=== PATIENT | female | born 1985 | race Two or more races ===

== ENCOUNTER 2024-04-22 13:46 | Emergency (ER) | payer OTHER ==
[~2024-04-22] VITALS: Ht 162.6 cm; Wt 103.1 kg
[2024-04-22 14:37] VITALS: BP 148/100; PULSE 90; RESP 18; TEMP 98.2; O2SAT 99
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
[2024-04-22] MEDS ORDERED: BACL10TA PO (16:01)
[2024-04-22] MEDS ORDERED: IBUP-1456 PO (16:01)
[2024-04-22] MEDS: ACETAMINOPHEN 325 MG TAB PO ONE (16:04)
== END 2024-04-22 16:03 | disposition home or self-care (01) ==
LOC: ER 13:46
DX: S39.011A Strain of muscle, fascia and tendon of abdomen, initial encounter (principal); Y04.2XXA Assault by strike against or bumped into by another person, initial encounter; Y93.89 Activity, other specified; Y92.89 Other specified places as the place of occurrence of the external cause; Y99.0 Civilian activity done for income or pay
CPT/HCPCS: 74176